=== PATIENT | female | born 1990 | race Two or more races ===

== ENCOUNTER 2022-06-13 18:12 | Emergency (ER) | payer SELFPAY ==
[~2022-06-13] VITALS: Ht 154.9 cm; Wt 97.5 kg
[2022-06-13] MEDS ORDERED: KETO10TA2 PO (19:00)
[2022-06-13] MEDS ORDERED: SUMA100T PO (19:00)
--- NOTE | 2022-06-13 19:38 | NUR ---
PATIENT IS DISCHARGED BEFORE I CAME
[2022-06-13 19:41] VITALS: BP 127/93
== END 2022-06-13 19:41 | disposition home or self-care (01) ==
LOC: ER 18:20
DX: G43.109 Migraine with aura, not intractable, without status migrainosus (principal); F32.A Depression, unspecified; Z79.899 Other long term (current) drug therapy

== ENCOUNTER 2024-07-13 23:38 | Emergency (ER) | payer MEDICAID ==
[~2024-07-13] VITALS: Ht 160 cm; Wt 95.3 kg
[~2024-07-13 23:38] MED LIST: KETO10TA2 PO; SUMA100T PO
[2024-07-14 00:25] LABS: BASOPHILS % (AUTO) 0.3 % (0.0-2.0); EOSINOPHILS # (AUTO) 0.1 K/uL (0.0-0.7); EOSINOPHILS % (AUTO) 0.9 % (0.0-6.0); HEMATOCRIT 37 % (33-45); HEMOGLOBIN 11.8 g/dL (11.5-14.8); LYMPHOCYTES # (AUTO) 3.3 K/uL (0.8-4.8); LYMPHOCYTES % (AUTO) 29.9 % (20.0-44.0); MEAN CORPUSCULAR HEMOGLOBIN 28 PG (26.0-33.0); MEAN CORPUSCULAR HGB CONC 32 g/dl (31.0-36.0); MEAN CORPUSCULAR VOLUME 86 fL (82-100); MONOCYTES # (AUTO) 0.5 K/uL (0.1-1.30); MONOCYTES % (AUTO) 4.8 % (2.0-12.0); NEUTROPHILS # (AUTO) 7.1 K/uL (1.8-8.9); NEUTROPHILS % (AUTO) 64.1 % (43.0-81.0); PLATELET COUNT (AUTO) 314 K/uL (150-450); RED BLOOD CELL COUNT(AUTO) 4.28 MIL/uL (4.0-5.2)
[2024-07-14 00:42] LABS: PREGNANCY TEST URINE QUAL NEGATIVE (NEGATIVE)
[2024-07-14 00:43] LABS: CALCIUM, SERUM 8.8 mg/dL (8.5-10.1); CARBON DIOXIDE 23 mmol/L (21-32); CHLORIDE 109 mmol/L (98-107); CREATININE 0.9 mg/dL (0.6-1.3); GLUCOSE 108 mg/dL (74-106); POTASSIUM 3.4 mmol/L (3.5-5.1); SODIUM SERUM 145 mmol/L (136-145); UREA NITROGEN, BLOOD 10 mg/dL (7-18)
[2024-07-14 00:49] LABS: ALANINE AMINOTRANSFERASE 61 U/L (12-78); ALBUMIN 3.8 g/dL (3.4-5.0); ALKALINE PHOSPHATASE 56 U/L (46-116); ASPARTATE AMINOTRANSFERASE 20 U/L (15-37); BILIRUBIN,DIRECT 0.1 mg/dL (0.0-0.2); BILIRUBIN,TOTAL 0.1 mg/dL (0.2-1.0); TOTAL PROTEIN, SERUM 8.1 g/dL (6.4-8.2)
[2024-07-14] MEDS ORDERED: ACETAMINOPHEN 325 MG TABLET ONE (01:03)
[2024-07-14 01:05] LABS: INR 0.98 (0.91-1.10); PARTIAL THROMBOPLASTIN TIME 25.9 SEC (24.3-34.3); PROTHROMBIN TIME 10.4 SECS (9.2-11.1)
[2024-07-14] MEDS: ACETAMINOPHEN 325 MG TABLET PO ONE (01:06)
[2024-07-14 03:13] VITALS: BP 118/95; TEMP 98.5; O2SAT 99
== END 2024-07-14 03:11 | disposition home or self-care (01) ==
LOC: ER 23:47
DX: R07.9 Chest pain, unspecified (principal); R00.0 Tachycardia, unspecified; R79.89 Other specified abnormal findings of blood chemistry; F10.10 Alcohol abuse, uncomplicated; F17.200 Nicotine dependence, unspecified, uncomplicated; F32.A Depression, unspecified; Z87.39 Personal history of other diseases of the musculoskeletal system and connective tissue; Y90.9 Presence of alcohol in blood, level not specified
CPT/HCPCS: 36415; 71045-TC; 80048-TC; 80076-TC; 84484-TC; 84703-TC; 85025-TC; 85378-TC; 85730-TC